=== PATIENT | female | born 1985 | race Caucasian/White ===

== ENCOUNTER → 2020-02-22 13:33 | Outpatient (CLI) | payer OTHER, SELFPAY ==
[2016-02-05 20:53] VITALS: BMI 33.7
[2020-02-22 14:37] LABS: NATERA MAILED SPECIMEN
== END ==
PROVIDERS: PCP Student in an Organized Health Care Education/Training Program; Referring Provider Nurse Practitioner Women's Health; Visit Provider Nurse Practitioner Women's Health
DX: Z80.42 Family history of malignant neoplasm of prostate (principal); Z80.7 Family history of other malignant neoplasms of lymphoid, hematopoietic and related tissues
CPT/HCPCS: 36415